=== PATIENT | female | born 1940 | race Caucasian/White ===

== ENCOUNTER 2021-07-20 13:49 | Inpatient (IN) | payer OTHER ==
[~2021-07-20] VITALS: Ht 157.5 cm; Wt 71.8 kg
--- NOTE | 2021-07-20 13:55 | NUR ---
Placed in room 05 . Placed on patient monitor, blood pressure machine and pulse oximeter. To gown for exam. Side rails up.
--- NOTE | 2021-07-20 14:00 | NUR ---
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
[2021-07-20 14:15] VITALS: BP_SYST 130
--- NOTE | 2021-07-20 14:30 | NUR ---
Dr Rodriguez evaluating patient at bedside
--- NOTE | 2021-07-20 15:15 | NUR ---
Report given Jeet SKELTON
--- NOTE | 2021-07-20 15:15 | NUR ---
Urine sent to the lab
[2021-07-20 15:34] LABS: BILIRUBIN,URINE NEGATIVE (NEGATIVE); BLOOD, URINE NEGATIVE (NEGATIVE); CLARITY/URINE CLEAR (CLEAR); COLOR,URINE YELLOW (YELLOW); GLUCOSE,URINE NEGATIVE (NEGATIVE); KETONES,URINE NEGATIVE (NEGATIVE); LEUKOCYTE ESTERASE ,URINE NEGATIVE (NEGATIVE); NITRITE, URINE POSITIVE (NEGATIVE); PROTEIN URINE NEGATIVE (NEGATIVE); UROBILINOGEN,URINE 0.2 (0.2-1.0)
[2021-07-20 15:57] LABS: BACTERIA,URINE MODERATE /HPF (None Seen); MUCUS,URINE 1+ /LPF (None Seen); RBC,URINE 0-3 /HPF (0-3); WBC,URINE 0-3 /HPF (0-3)
[2021-07-20 16:40] LABS: BASOPHILS # (AUTO) 0.1 K/uL (0.0-0.2); BASOPHILS % (AUTO) 0.9 % (0.0-2.0); EOSINOPHILS # (AUTO) 0.1 K/uL (0.0-0.4); EOSINOPHILS % (AUTO) 1.9 % (0.0-4.0); HEMATOCRIT 40.6 % (36-48); HEMOGLOBIN 13.1 g/dL (12.0-16.0); LYMPHOCYTES % (AUTO) 25.6 % (20.5-51.5); MEAN CORPUSCULAR HEMOGLOBIN 24 pg (27-31); MEAN CORPUSCULAR HGB CONC 32 % (32-36); MEAN CORPUSCULAR VOLUME 75 fL (79.0-98.0); MONOCYTES # (AUTO) 0.5 K/uL (0.0-1.0); NEUTROPHILS # (AUTO) 5.1 K/uL (1.8-7.7); NEUTROPHILS % (AUTO) 64.6 % (40.0-70.0); PLATELET COUNT (AUTO) 321 K/uL (130-430); RED BLOOD CELL COUNT(AUTO) 5.41 MIL/uL (4.2-6.2); RED CELL DISTRIBUTION WIDTH 21.9 % (9.0-15.0); WHITE BLOOD COUNT (AUTO) 7.8 K/uL (4.8-10.8)
[2021-07-20 16:53] LABS: ANION GAP 6 (5-15); CALCIUM 8.9 mg/dL (8.4-11.0); CHLORIDE 98 mmol/L (98-107); CREATININE 0.99 mg/dL (0.55-1.30); GLUCOSE 97 mg/dL (70-99); POTASSIUM 3.8 mmol/L (3.5-5.1); SODIUM SERUM 135 mmol/L (136-145); UREA NITROGEN, BLOOD 16 mg/dL (8-21)
[2021-07-20 17:02] LABS: ALANINE AMINOTRANSFERASE 17 U/L (12-78); ASPARTATE AMINOTRANSFERASE 19 U/L (10-37); LIPASE 84 U/L (73-393); TOTAL BILIRUBIN 0.6 mg/dL (0.0-1.0)
--- NOTE | 2021-07-20 17:10 | NUR ---
Pt in bed in no acute distress AOx4 GCS 15. IV in place. Pt placed on bed mora to help urination. Will continue to monitor pt.
[2021-07-20] MEDS ORDERED: cephALEXin 500 MG CAPSULE PO ONE (18:45)
[2021-07-20] MEDS ORDERED: NITROGLYCERIN 0.4 MG TAB.SUBL SL ONE (18:45)
[2021-07-20] MEDS ORDERED: ACETAMINOPHEN 500 MG TABLET PO ONE (18:45)
[2021-07-20] MEDS ORDERED: ASPIRIN 325 MG TABLET PO ONE (19:00)
[2021-07-20] MEDS ORDERED: FUROSEMIDE 40 MG/4 ML VIAL IVP ONE (19:00)
--- NOTE | 2021-07-20 19:25 | NUR ---
Received pt from previous shift. PMH CVA with L sided deficit and R shoulder injury. Pt here c/o chest pain , which denies pain at this time, s/p NTG and lasix administration. Swallow eval passed by previous RN.VS stable. Able to urinate via bed mora. Pending admission. Will continue to monitor Addendum: 07/20/21 at 2000 by [email or web address] NAFISA Mitchell
--- NOTE | 2021-07-20 19:30 | NUR ---
Admit bed requested Patient will be admitted to care of . Admitted to TELE unit. Diagnosis CHEST PAIN Inpatient (Yes or No) YES Observation (Yes or No) NO Orientation concerns or request close to nursing station (Yes or No) YES Covid Status NEGATIVE On vent or bipap N Isolation requirements N Needs a sitter N From Home (Yes or if No enter name of facility) N Requires Dialysis (Yes or No) N Med Rec Completed (Yes of No) PENDING
--- NOTE | 2021-07-20 21:05 | NUR ---
NAFISA Mitchell Pt will be transfer to bed 104B. Full report will be given to accepting RN at bed side. Pt transfer via gurney, accompanied by RN and placed on portable lunchroom monitor during transfer
[2021-07-20] MEDS ORDERED: ISO10 PO (21:20)
[2021-07-20] MEDS ORDERED: COR12.5 PO (21:20)
[2021-07-20] MEDS ORDERED: METF-518 PO (21:20)
[2021-07-20] MEDS ORDERED: FURO-150 PO (21:20)
[2021-07-20] MEDS ORDERED: FOLI-43 PO (21:20)
[2021-07-20] MEDS ORDERED: OXYB10TA4 PO (21:20)
[2021-07-20] MEDS ORDERED: POTA-197 PO (21:20)
[2021-07-20] MEDS ORDERED: EZETIMIBE PO (21:20)
[2021-07-20] MEDS ORDERED: NORT50CA5 PO (21:20)
[2021-07-20] MEDS ORDERED: RIVA20TA PO (21:20)
[2021-07-20] MEDS ORDERED: BACL10TA PO (21:20)
[2021-07-20] MEDS ORDERED: LOSA25TA3 PO (21:20)
[2021-07-20] MEDS ORDERED: LEVO100T9 PO (21:20)
[2021-07-20] MEDS ORDERED: OMEP20CA15 PO (21:20)
--- NOTE | 2021-07-20 21:20 | NUR ---
Medication reconciliation completed with information provided by grand daughter. Any prior medication reconciliation on file was reviewed and corrected.
[2021-07-20] MEDS ORDERED: ONDANSETRON HCL 4 MG/2 ML VIAL IVP PRN (21:30)
[2021-07-20] MEDS ORDERED: LORazepam 2 MG/ML VIAL IVP PRN (21:30)
[2021-07-20] MEDS ORDERED: INSULIN REGULAR, HUMAN 100 UNITS/ML, 10 ML VIAL (humuLIN R) SUBCUT PRN (21:30)
[2021-07-20] MEDS ORDERED: ACETAMINOPHEN 325 MG TABLET PO PRN (21:30)
--- NOTE | 2021-07-20 21:30 | NUR ---
PT ADMITTED TO [facility]. PT AOX4 ABLE TO MAKE NEEDS KNOWN. PT BENGALI SPEAKING. GRANDDAUGHTER AT BEDSIDE. RR EVEN AND UNLABORED ON RA. PT HAS HX OF STROKE. L ARM WEAK WITH LITTLE MOVEMENT. PT ABLE TO MOVE L LEG. PT BASELINE AT HOME IS AMBULATORY WITH CANE OR WALKER. PT HAS UPPER/LOWER DENTURES IN. ALL OTHER BELONGINGS SENT HOME WITH GRANDDAUGHTER. IV IN R HAND SL. CALL LIGHT WITHIN REACH. BED ALARM ON. HOB ELEVATED. BED RAILS UPX2. PT EDUCATED TO USE CALL LIGHT IF SHE NEEDS ASSISTANCE. WILL CONTINUE TO MONITOR.
[2021-07-20] MEDS ORDERED: NORMAL SALINE 5 ML DISP.SYRIN IVF SCH (22:00)
[2021-07-20] MEDS: NORMAL SALINE 5 ML DISP.SYRIN IVF SCH (22:33)
[2021-07-21 00:30] VITALS: BP_SYST 125
[2021-07-21 02:08] VITALS: BP_SYST 134
[2021-07-21] MEDS: NORMAL SALINE 5 ML DISP.SYRIN IVF SCH ×2 (05:02→14:04)
--- NOTE | 2021-07-21 05:51 | NUR ---
CONSULT: CONSULT CALLED FOR DR. MIGUEL ÁNGEL Rico I SPOKE WITH ANGELIKA FISHER REASON FOR CONSULT: CHEST PAIN DIESEL LOCOMOTIVE ENGINEER PHONE NUMBER: [phone]
[2021-07-21 07:13] LABS: ANION GAP 11 (5-15); CALCIUM 9.1 mg/dL (8.4-11.0); CHLORIDE 97 mmol/L (98-107); CHOLESTEROL 129 mg/dL (<200); CREATININE 0.85 mg/dL (0.55-1.30); GLUCOSE 101 mg/dL (70-99); HDL CHOLESTEROL 46 mg/dL (>55); LDL CHOLESTEROL 74 mg/dL (<100); POTASSIUM 3.4 mmol/L (3.5-5.1); SODIUM SERUM 136 mmol/L (136-145); TRIGLYCERIDES 74 mg/dL (30-150); UREA NITROGEN, BLOOD 15 mg/dL (8-21)
[2021-07-21] MEDS ORDERED: LEVOTHYROXINE SODIUM 0.1 MG TABLET PO SCH (07:30)
[2021-07-21 07:34] LABS: BASOPHILS # (AUTO) 0.1 K/uL (0.0-0.2); BASOPHILS % (AUTO) 0.9 % (0.0-2.0); EOSINOPHILS # (AUTO) 0.1 K/uL (0.0-0.4); EOSINOPHILS % (AUTO) 2.3 % (0.0-4.0); HEMATOCRIT 41.2 % (36-48); HEMOGLOBIN 13.1 g/dL (12.0-16.0); LYMPHOCYTES # (AUTO) 1.6 K/uL (1.0-5.5); LYMPHOCYTES % (AUTO) 24.9 % (20.5-51.5); MEAN CORPUSCULAR HEMOGLOBIN 24 pg (27-31); MEAN CORPUSCULAR HGB CONC 32 % (32-36); MEAN CORPUSCULAR VOLUME 76 fL (79.0-98.0); MONOCYTES # (AUTO) 0.7 K/uL (0.0-1.0); NEUTROPHILS # (AUTO) 3.8 K/uL (1.8-7.7); NEUTROPHILS % (AUTO) 60.9 % (40.0-70.0); PLATELET COUNT (AUTO) 294 K/uL (130-430); RED BLOOD CELL COUNT(AUTO) 5.41 MIL/uL (4.2-6.2); RED CELL DISTRIBUTION WIDTH 21.5 % (9.0-15.0); WHITE BLOOD COUNT (AUTO) 6.2 K/uL (4.8-10.8)
[2021-07-21 07:43] LABS: THYROID STIMULATING HORMONE 2.12 uIu/mL (0.36-3.74)
[2021-07-21 08:00] VITALS: BP_SYST 118
--- NOTE | 2021-07-21 08:00 | NUR ---
Opening Note Patient is laying in bed awake. A/O x4. No apparent distress noted. Patient denies pain. Vitals as charted. Call light within reach. Safety and fall precautions in place. All needs met.
--- NOTE | 2021-07-21 08:33 | NUR ---
Discharge Planning: DCP faxed pt referral to [facility], per CM.
[2021-07-21] MEDS ORDERED: LOSARTAN POTASSIUM 25 MG TABLET PO SCH (09:00)
[2021-07-21] MEDS ORDERED: ISOSORBIDE DINITRATE 10 MG TABLET (ISORDIL) PO SCH (09:00)
[2021-07-21] MEDS ORDERED: EZETIMIBE 10 MG TABLET PO SCH (09:00)
[2021-07-21] MEDS ORDERED: FOLIC ACID 1 MG TABLET PO SCH (09:00)
[2021-07-21] MEDS ORDERED: CARVEDILOL 12.5 MG TABLET (COREG) PO SCH (09:00)
[2021-07-21] MEDS ORDERED: RIVAROXABAN 10 MG TABLET PO SCH (09:00)
[2021-07-21] MEDS ORDERED: FUROSEMIDE 20 MG TABLET PO SCH (09:00)
[2021-07-21] MEDS ORDERED: OXYBUTYNIN CHLORIDE 5 MG XL TAB PO SCH (09:00)
[2021-07-21] MEDS ORDERED: OMEPRAZOLE Non-Formulary 20 MG CAPSULE.DR PO SCH (09:00)
[2021-07-21] MEDS ORDERED: PANTOPRAZOLE SODIUM 40 MG TAB PO SCH (09:00)
[2021-07-21] MEDS ORDERED: POTASSIUM CHLORIDE 20 MEQ TAB.PRT.SR PO SCH (09:00)
[2021-07-21] MEDS ORDERED: NORTRIPTYLINE HCL 25 MG CAPSULE PO SCH (09:00)
--- NOTE | 2021-07-21 11:45 | NUR ---
Note Assisted patient with hygiene and linen change. Safety and fall precautions in place. Call light within reach. All needs met.
[2021-07-21 12:00] VITALS: BP_SYST 122
[2021-07-21 16:00] VITALS: BP_SYST 109
--- NOTE | 2021-07-21 16:40 | NUR ---
CARDIO PAGED: CALLED DR Shell [facility] AND SPOKE WITH CIRILO REGARDING CARDIO CLEARANCE FOR DISCHARGE HOME PER DR ADORNO.
[2021-07-21 18:08] VITALS: BP_SYST 109
--- NOTE | 2021-07-21 19:32 | NUR ---
D/C Note Patient is ready for d/c. Will be brought out by wheelchair by budget technician RN.
[2021-07-21] MEDS ORDERED: BACLOFEN 10 MG TABLET PO SCH (21:00)
[2021-07-21] MEDS ORDERED: OXYBUTYNIN CHLORIDE 5 MG TABLET PO SCH (21:00)
== END 2021-07-21 19:32 | disposition home or self-care (01) | DRG 392 ==
LOC: SED 13:49 → STU 19:04
PROVIDERS: ADMIT Preventive Medicine Preventive Medicine/Occupational Environmental Medicine; ATTEND Preventive Medicine Preventive Medicine/Occupational Environmental Medicine
DX: K21.9 Gastro-esophageal reflux disease without esophagitis (principal); N39.0 Urinary tract infection, site not specified; I11.0 Hypertensive heart disease with heart failure; I50.9 Heart failure, unspecified; I48.91 Unspecified atrial fibrillation; I10 Essential (primary) hypertension; Z20.822 Contact with and (suspected) exposure to COVID-19; Z86.73 Personal history of transient ischemic attack (TIA), and cerebral infarction without residual deficits; Z88.6 Allergy status to analgesic agent; Z88.5 Allergy status to narcotic agent; Z79.899 Other long term (current) drug therapy
CPT/HCPCS: 36415; 71045; 80048; 80053; 80061; 81000; 82962; 83605; 83690; 83735; 83880; 84100; 84443; 84484; 85025; 85379; 87040; 87086; 93005; 93306; 96374; 99285; G0378; J1940